=== PATIENT | female | born 1990 | race Caucasian/White ===

== ENCOUNTER 2021-04-23 19:10 | Outpatient (CLI) | payer OTHER | END 2021-04-23 22:15 | disposition home or self-care (01) | LOC: GENOP 19:10 | DX: O46.93 Antepartum hemorrhage, unspecified, third trimester (principal); O99.613 Diseases of the digestive system complicating pregnancy, third trimester; K50.90 Crohn's disease, unspecified, without complications; O99.353 Diseases of the nervous system complicating pregnancy, third trimester; G43.909 Migraine, unspecified, not intractable, without status migrainosus; O99.333 Smoking (tobacco) complicating pregnancy, third trimester; F17.200 Nicotine dependence, unspecified, uncomplicated; Z3A.30 30 weeks gestation of pregnancy | CPT/HCPCS: 59025; 81001; 96360; 96361; 96372; J0702 ==

== ENCOUNTER 2021-04-24 20:36 | Outpatient (CLI) | payer OTHER | END 2021-04-24 21:33 | disposition home or self-care (01) | LOC: GENOP 20:36 | DX: O46.93 Antepartum hemorrhage, unspecified, third trimester (principal); O99.333 Smoking (tobacco) complicating pregnancy, third trimester; F17.210 Nicotine dependence, cigarettes, uncomplicated; O99.343 Other mental disorders complicating pregnancy, third trimester; F41.9 Anxiety disorder, unspecified; Z3A.29 29 weeks gestation of pregnancy | CPT/HCPCS: 96372; G0463; J0702 ==

== ENCOUNTER 2021-05-11 21:32 | Outpatient (CLI) | payer OTHER | END 2021-05-12 01:28 | disposition home or self-care (01) | LOC: GENOP 21:32 | PROVIDERS: Obstetrics & Gynecology | DX: O26.893 Other specified pregnancy related conditions, third trimester (principal); R10.2 Pelvic and perineal pain; M54.5 Low back pain; R22.9 Localized swelling, mass and lump, unspecified; Z3A.49 Greater than 42 weeks gestation of pregnancy | CPT/HCPCS: 59025; 80307; 81001; 83518; 96360; J7030 ==

== ENCOUNTER 2021-05-30 09:30 | Outpatient (CLI) | payer OTHER | END 2021-05-30 14:16 | disposition home or self-care (01) | LOC: GENOP 09:30 | DX: O47.03 False labor before 37 completed weeks of gestation, third trimester (principal); Z3A.34 34 weeks gestation of pregnancy; O99.353 Diseases of the nervous system complicating pregnancy, third trimester; O99.613 Diseases of the digestive system complicating pregnancy, third trimester; G43.909 Migraine, unspecified, not intractable, without status migrainosus; K50.90 Crohn's disease, unspecified, without complications | CPT/HCPCS: 96360; J7120 ==

== ENCOUNTER 2021-06-08 23:27 | Outpatient (CLI) | payer OTHER | END 2021-06-09 03:32 | disposition home or self-care (01) | LOC: GENOP 23:27 | DX: O47.03 False labor before 37 completed weeks of gestation, third trimester (principal); O99.613 Diseases of the digestive system complicating pregnancy, third trimester; K50.90 Crohn's disease, unspecified, without complications; O99.333 Smoking (tobacco) complicating pregnancy, third trimester; F17.210 Nicotine dependence, cigarettes, uncomplicated; O99.343 Other mental disorders complicating pregnancy, third trimester; F41.9 Anxiety disorder, unspecified; O99.353 Diseases of the nervous system complicating pregnancy, third trimester; G43.909 Migraine, unspecified, not intractable, without status migrainosus; Z79.899 Other long term (current) drug therapy; Z3A.35 35 weeks gestation of pregnancy | CPT/HCPCS: 59025; 81001; 96360; 96361 ==

== ENCOUNTER 2021-06-20 13:19 | Outpatient (CLI) | payer OTHER | END 2021-06-20 17:09 | disposition home or self-care (01) | LOC: GENOP 13:19 | DX: O47.1 False labor at or after 37 completed weeks of gestation (principal); Z3A.37 37 weeks gestation of pregnancy; O99.353 Diseases of the nervous system complicating pregnancy, third trimester; O99.613 Diseases of the digestive system complicating pregnancy, third trimester; G43.909 Migraine, unspecified, not intractable, without status migrainosus; K50.90 Crohn's disease, unspecified, without complications | CPT/HCPCS: G0463 ==

== ENCOUNTER 2021-07-02 03:20 | Inpatient (IN) | payer OTHER ==
[~2021-07-02] VITALS: Ht 162.6 cm; Wt 64.9 kg
[2021-07-02 04:07] LABS: HEMOGLOBIN 11.8 gm/dl (12.3-15.3); RED BLOOD COUNT 3.66 M/UL (4.00-5.10); WHITE BLOOD COUNT 8.8 K/UL (4.5-11.0)
[2021-07-02] MEDS ORDERED: FAMOTIDINE20 MG PO (04:53)
[2021-07-02] MEDS ORDERED: PRENATAL VITAM1 EAC8 PO (04:53)
[2021-07-02] MEDS ORDERED: DOCUSATE SODIU250 MG PO (12:45)
[2021-07-02] MEDS ORDERED: FEROSUL325 MG PO (12:45)
[2021-07-02] MEDS ORDERED: IBUPROFEN600 MG PO (12:45)
[2021-07-03 05:48] LABS: HEMOGLOBIN 10.8 gm/dl (12.3-15.3)
== END 2021-07-04 11:13 | disposition home or self-care (01) | DRG 807 ==
LOC: GENOP 03:20 → OB 03:58
PROVIDERS: ADMIT Obstetrics & Gynecology
PROC: 10E0XZZ Delivery of Products of Conception, External Approach (ICD-10-PCS; principal; 2021-07-02)
DX: O80 Encounter for full-term uncomplicated delivery (principal); Z37.0 Single live birth; Z3A.39 39 weeks gestation of pregnancy; Z20.822 Contact with and (suspected) exposure to COVID-19
CPT/HCPCS: 36415; 51702; 81001; 85014; 85018; 85025; 90715; J2590; U0002